=== PATIENT | female | born 1945 | race Caucasian/White ===

== ENCOUNTER 2018-06-03 14:18 | Outpatient (CLI) | payer OTHER ==
[~2018-06-03 14:18] MED LIST: ABILIFY5 MG PO; AMBIEN5 MG PO; SEROQUEL50 MG; WELLBUTRIN XL300 MG
== END 2018-06-03 14:37 | disposition home or self-care (01) ==
LOC: SONOGRAMA 14:18
DX: R10.84 Generalized abdominal pain (principal); N18.3 Chronic kidney disease, stage 3 (moderate); R31.9 Hematuria, unspecified

== ENCOUNTER 2018-07-30 14:03 | Outpatient (CLI) | payer OTHER | END 2018-07-30 14:13 | disposition home or self-care (01) | LOC: NUCLEAR 14:03 | DX: M81.0 Age-related osteoporosis without current pathological fracture (principal) ==

== ENCOUNTER 2018-09-24 12:32 | Outpatient (CLI) | payer OTHER | END 2018-09-24 12:44 | disposition home or self-care (01) | LOC: RAD 12:32 | DX: H25.011 Cortical age-related cataract, right eye (principal); Z98.41 Cataract extraction status, right eye ==

== ENCOUNTER 2018-12-22 14:22 | Outpatient (CLI) | payer OTHER | END 2018-12-22 14:30 | disposition home or self-care (01) | LOC: MAMO-SONO 14:22 | DX: Z12.31 Encounter for screening mammogram for malignant neoplasm of breast (principal); Z87.898 Personal history of other specified conditions; N63.10 Unspecified lump in the right breast, unspecified quadrant ==

== ENCOUNTER → 2019-01-25 | Outpatient (CLI) | payer OTHER | END | disposition home or self-care (01) | LOC: SONOGRAMA 13:55 | DX: E04.0 Nontoxic diffuse goiter (principal) ==

== ENCOUNTER 2020-07-05 19:29 | Emergency (ER) | payer OTHER ==
[~2020-07-05] VITALS: Ht 154.9 cm; Wt 53.5 kg
[2020-07-05] MEDS ORDERED: CLONAZEPAM1 M1 (19:41)
[2020-07-05] MEDS ORDERED: SYNTHROID100 MCG (19:57)
== END 2020-07-06 07:50 | disposition home or self-care (01) ==
LOC: ER 19:29 → CPU-OBS 19:39 → ER 07-06 07:50
DX: R07.89 Other chest pain (principal); R00.2 Palpitations; R51.9 Headache, unspecified; Z03.818 Encounter for observation for suspected exposure to other biological agents ruled out

== ENCOUNTER 2020-08-02 14:22 | Outpatient (CLI) | payer OTHER ==
[~2020-08-02 14:22] MED LIST changes: +CLONAZEPAM1 M1; +SYNTHROID100 MCG
== END 2020-08-02 14:25 | disposition home or self-care (01) ==
LOC: MAMO-SONO 14:22
PROVIDERS: ATTEND Internal Medicine
DX: R92.1 Mammographic calcification found on diagnostic imaging of breast (principal); Z12.31 Encounter for screening mammogram for malignant neoplasm of breast; Z12.11 Encounter for screening for malignant neoplasm of colon; E03.8 Other specified hypothyroidism; M54.5 Low back pain; Z01.810 Encounter for preprocedural cardiovascular examination; E78.89 Other lipoprotein metabolism disorders; I11.9 Hypertensive heart disease without heart failure; F41.8 Other specified anxiety disorders; F32.1 Major depressive disorder, single episode, moderate; F39 Unspecified mood [affective] disorder; Z13.820 Encounter for screening for osteoporosis

== ENCOUNTER 2020-11-16 15:23 | Outpatient (CLI) | payer OTHER | END 2020-11-16 15:26 | disposition home or self-care (01) | LOC: NUCLEAR 15:23 | PROVIDERS: ATTEND Internal Medicine | DX: M54.5 Low back pain (principal); M81.0 Age-related osteoporosis without current pathological fracture ==

== ENCOUNTER 2020-11-28 10:51 | Emergency (ER) | payer OTHER ==
[~2020-11-28] VITALS: Ht 154.9 cm; Wt 54.4 kg
[2020-11-28] MEDS ORDERED: TOPROL XL100 M1 (11:18)
[2020-11-28] MEDS ORDERED: SIMVASTATIN5 MG (11:19)
[2020-11-28] MEDS ORDERED: LAMICTAL100 M1 (11:19)
== END 2020-11-28 15:50 | disposition home or self-care (01) ==
LOC: ER 10:51
DX: R53.1 Weakness (principal); R07.89 Other chest pain

== ENCOUNTER 2022-02-01 12:03 | Outpatient (CLI) | payer OTHER ==
[~2022-02-01 12:03] MED LIST changes: +LAMICTAL100 M1; +SIMVASTATIN5 MG; +TOPROL XL100 M1
== END 2022-02-01 12:10 | disposition home or self-care (01) ==
LOC: MAMO-SONO 12:03
PROVIDERS: ATTEND Internal Medicine
DX: Z12.31 Encounter for screening mammogram for malignant neoplasm of breast (principal); Z13.820 Encounter for screening for osteoporosis; Z12.11 Encounter for screening for malignant neoplasm of colon; I11.9 Hypertensive heart disease without heart failure; F41.9 Anxiety disorder, unspecified; F32.1 Major depressive disorder, single episode, moderate; F39 Unspecified mood [affective] disorder; M54.50 Low back pain, unspecified; E03.9 Hypothyroidism, unspecified; E78.9 Disorder of lipoprotein metabolism, unspecified

== ENCOUNTER 2022-02-15 13:35 | Outpatient (CLI) | payer OTHER | END 2022-02-15 13:45 | disposition home or self-care (01) | LOC: NUCLEAR 13:35 | PROVIDERS: ATTEND Internal Medicine Sports Medicine | DX: M81.0 Age-related osteoporosis without current pathological fracture (principal); Z88.0 Allergy status to penicillin; Z88.1 Allergy status to other antibiotic agents ==

== ENCOUNTER 2022-04-16 20:20 | Emergency (ER) | payer OTHER | END 2022-04-16 21:55 | disposition home or self-care (01) | LOC: ER 20:20 | DX: R07.89 Other chest pain (principal); Z88.0 Allergy status to penicillin; Z88.2 Allergy status to sulfonamides; R00.2 Palpitations; I10 Essential (primary) hypertension ==

== ENCOUNTER 2023-01-21 20:24 | Emergency (ER) | payer OTHER ==
[~2023-01-21] VITALS: Ht 154.9 cm; Wt 63.5 kg
== END 2023-01-22 01:56 | disposition home or self-care (01) ==
LOC: ER 20:24
DX: I10 Essential (primary) hypertension (principal); F41.8 Other specified anxiety disorders; E78.00 Pure hypercholesterolemia, unspecified; E07.89 Other specified disorders of thyroid; R07.89 Other chest pain; Z88.0 Allergy status to penicillin; Z88.2 Allergy status to sulfonamides; Z20.822 Contact with and (suspected) exposure to COVID-19

== ENCOUNTER 2023-01-26 11:30 | Emergency (ER) | payer OTHER ==
[~2023-01-26] VITALS: Ht 154.9 cm; Wt 63.5 kg
== END 2023-01-26 14:31 | disposition left against medical advice (07) ==
LOC: ER 11:30
DX: Z53.21 Procedure and treatment not carried out due to patient leaving prior to being seen by health care provider (principal)

== ENCOUNTER → 2025-02-12 | Emergency (ER) | payer OTHER ==
[~2025-02-12] VITALS: Ht 152.4 cm; Wt 56.7 kg
[~2025-02-12] MED LIST changes: +CHILDREN'S ASPI81 MG; +SYNTHROID75 MCG
== END | disposition home or self-care (01) ==
LOC: ER 20:19
DX: S00.93XA Contusion of unspecified part of head, initial encounter (principal); W18.39XA Other fall on same level, initial encounter; Y93.K1 Activity, walking an animal; Y92.488 Other paved roadways as the place of occurrence of the external cause; Y99.9 Unspecified external cause status; Z88.0 Allergy status to penicillin

== ENCOUNTER → 2025-02-21 | Emergency (ER) | payer OTHER ==
[~2025-02-21] VITALS: Ht 154.9 cm; Wt 56.7 kg
[~2025-02-21] MED LIST changes: +ARBLI10 MG/1 ML PO; +LAMICTAL5 MG PO; +LEVOTHYROXINE25 MCG PO; +MECLIZINE HCL 25 MG TABLET PO STA; +QUETIAPINE FUMA25 MG PO; +SIMVASTATIN5 MG PO; +TOPROL XL25 M1 PO; +hydrOXYzine PAMOATE 25 MG CAPSULE PO STA
[2025-02-21 22:09] VITALS: BP 151/83; O2SAT 97
== END | disposition left against medical advice (07) ==
LOC: ER 21:42 → EDBD 21:42 → ER 22:12
DX: R42 Dizziness and giddiness (principal); R51.9 Headache, unspecified; Z88.0 Allergy status to penicillin

== ENCOUNTER 2025-05-22 16:40 | Emergency (ER) | payer OTHER ==
[~2025-05-22] VITALS: Ht 152.4 cm; Wt 59.0 kg
[~2025-05-22 16:40] MED LIST changes: -MECLIZINE HCL 25 MG TABLET PO STA; -hydrOXYzine PAMOATE 25 MG CAPSULE PO STA
[2025-05-22 19:30] LABS: BASO % 1.1 % (0.1-1.2); EOS # 0.28 (0.04-0.54); EOS % 3.3 % (0.7-7.0); LYMPH # 1.85 (1.18-3.74); LYMPH % 21.9 % (19.3-53.1); MEAN PLATELET VOLUME 10.80 fl (9.4-12.4); MONO # 0.64 (0.24-0.82); MONO % 7.6 % (4.7-12.5); NEUT # 5.57 (1.56-6.13); NEUT % 65.7 % (34.0-71.1); RED CELL DISTRIBUTION WIDTH 12.3 % (11.6-14.4)
[2025-05-22 19:55] LABS: ALT/SGPT 43.0 U/L (12-78); AST/SGOT 34.0 U/L (15-37); BILIRUBIN TOTAL 0.49 mg/dL (0.3-1.2); BUN CREA RATIO 15.0 (7.0-25.0); CREATININE SERUM 0.98 mg/dL (0.55-1.02); GFR 54.6; GLOBULINA 3.4 G/DL (2.4-3.5); GLUCOSE FASTING 93.0 mg/dL (65-100); OSMOLALITY SERUM 274.0 MOSM/KG (275-295)
[2025-05-22 20:17] LABS: URINE APPEARANCE Clear; URINE BILIRRUBIN Negative (NEGATIVE); URINE BLOOD Negative; URINE COLOR Yellow; URINE GLUCOSE Negative (NEGATIVE); URINE KETONE Negative (NEGATIVE); URINE LEUKOCYTE Negative; URINE NITRATE Negative; URINE PROTEIN Negative (NEGATIVE); URINE UROBILINOGEN 0.2 E.U./dl
[2025-05-22 20:20] LABS: URINE RBC 3.0 uL (0.0-20.8); URINE WBC 5.8 uL (0.0-23.2)
[2025-05-22 20:31] LABS: COVID-19 AG NEGATIVE (NEGATIVE)
[2025-05-22 21:13] LABS: URINE BACTERIA 2.4 uL (0.0-1933); URINE CAST 0.14 uL (0.0-1.40); URINE EPITHELIAL CELLS 0.6 uL (0.0-38.8)
== END 2025-05-22 22:44 | disposition home or self-care (01) ==
LOC: ER 16:41
PROVIDERS: General Practice
DX: I50.9 Heart failure, unspecified (principal); Z20.822 Contact with and (suspected) exposure to COVID-19; E03.9 Hypothyroidism, unspecified; I10 Essential (primary) hypertension; Z88.0 Allergy status to penicillin

== ENCOUNTER 2025-05-27 14:29 | Emergency (ER) | payer OTHER | END 2025-05-27 15:05 | disposition left against medical advice (07) | LOC: ER 14:29 | DX: Z53.21 Procedure and treatment not carried out due to patient leaving prior to being seen by health care provider (principal) ==